=== PATIENT | female | born 1945 | race Caucasian/White ===

== ENCOUNTER 2025-01-17 05:48 | Emergency (ER) | payer MEDICARE, MEDICAID, SELFPAY ==
[2025-01-17 05:50] VITALS: BP 198/90; PULSE 69; RESP 18; TEMP 36.6; O2SAT 97; O2SAT 98; BMI 28.7
--- NOTE | 2025-01-17 05:55 | CT_ITS ---
PROCEDURE: BRAIN/HEAD WITHOUT CONTRAST 01/17/2025 REASON FOR EXAM: FALL/INJURY TECHNIQUE: Head CT without intravenous contrast. Coronal and Sagittal reconstruction series were provided. One or more dose reduction techniques were used (e.g., Automated exposure control, adjustment of the mA and/or kV according to patient size, use of iterative reconstruction technique. RADIATION DOSE SUMMARY: CTDlvol: 45 mGy DLP: 796 mGycm COMPARISON: None. FINDINGS: The ventricles and sulci are prominent due to atrophy. There is asymmetric volume loss within the left frontoparietal region, may be due to prior insult. Extensive periventricular white matter changes are present consistent with chronic microvascular ischemic disease. Age-indeterminate infarcts seen near the left external capsule (image 23/43). Age indeterminate infarcts along the right lateral convexity (image 27/43). There is no definitive intracranial hemorrhage, mass effect or midline shift. The calvarium is intact. The visualized paranasal sinuses are unremarkable. CT/Brain/Head without Contrast IMPRESSION: No acute intracranial hemorrhage, mass effect or midline shift. Age indeterminate cerebral infarcts. If there is concern for acute infarct, MR I may be obtained. Reading Location: [id number]
--- NOTE | 2025-01-17 05:55 | ED.VIS.FALL ---
HPI HPI - Fall History of Present Illness Chief Complaint: Fall Informant: patient and EMS Narrative Narrative: 79-year-old female sent from a retirement after a fall that occurred last night which was somewhere between 6 and 9 hours ago. She states she got up to walk with her walker, she was going around the foot of her bed and somehow she fell. There were no prodromal symptoms, she states her head landed in a basket of laundry. She does not have a headache but states her head feels a little foggy and funny. She denies any other pain or injury. Although it is not on record here, the medication list that accompanies her from the retirement states she takes warfarin. She denies any recent illness. She has a chronically indwelling Grider catheter, she has had no hematuria, she has a history of a stroke with weakness on the right side, and a chronic right shoulder pain that is no different than usual right now. She has no sensitivity to light, blurry vision, neck pain, or dizziness. [facility] Medical History Hemiplegia affecting right dominant side Major depressive disorder Restless leg syndrome Neuromuscular dysfunction of bladder Retention of urine Constipated Insomnia Generalized anxiety disorder HTN (hypertension) Hyperlipemia UTI (urinary tract infection) GERD (gastroesophageal reflux disease) Anemia, unspecified Congestive heart failure Chronic kidney disease, stage 3 unspecified Hypomagnesemia Antiphospholipid syndrome Type 2 diabetes mellitus Home Medications ?Medication ?Instructions ?Recorded ?Last Taken ?Type albuterol sulfate 90 mcg/actuation 2 puff inhalation Q4H PRN PRN Sob 10/19/16 Unknown History aerosol inhaler (Ventolin HFA) &/Or Wheezing biotin 300 mcg tablet 300 mcg PO DAILY 10/19/16 Unknown History bupropion HCl 150 mg tablet,12 hr 150 mg PO BID 10/19/16 Unknown History sustained-release cholecalciferol (vitamin D3) 25 2,000 unit PO BID 10/19/16 Unknown History mcg (1,000 unit) tablet (Vitamin D3) diclofenac sodium 75 mg 75 mg PO BID 10/19/16 Unknown History tablet,delayed release estradiol 0.5 mg tablet (Estrace) 0.5 - 1 mg PO DAILY 10/19/16 Unknown History ferrous gluconate 240 mg (27 mg 240 mg PO DAILY 10/19/16 Unknown History iron) tablet glipizide 5 mg tablet, extended 5 mg PO 10/19/16 Unknown History release 24 hr (Glucotrol XL) levothyroxine 175 mcg tablet 175 mcg PO DAILY 10/19/16 Unknown History losartan 50 mg tablet (Cozaar) 50 mg PO 10/19/16 Unknown History magnesium 250 mg tablet 250 mg PO BID 10/19/16 Unknown History metformin 850 mg tablet 850 mg PO BIDCM 10/19/16 Unknown History multivitamin (Multiple Vitamins 1 ea PO DAILY 10/19/16 Unknown History tablet) omega 3-nji-qdr-fish oil 500 mg 1 ea PO DAILY 10/19/16 Unknown History (200mg-300mg)-1,000 mg capsule omeprazole 10 mg capsule,delayed 10 mg PO DAILY 10/19/16 Unknown History release pravastatin 20 mg tablet 20 mg PO QHS 10/19/16 Unknown History alogliptin 12.5 mg tablet 12.5 mg PO DAILY 01/17/25 Unknown History amoxicillin 500 mg tablet 500 mg PO TID 01/17/25 Unknown History aspirin 81 mg chewable tablet 1 tab PO DAILY 01/17/25 Unknown History atorvastatin 40 mg tablet 40 mg PO DAILY 01/17/25 Unknown History bisacodyl 10 mg rectal suppository 10 mg [place] DAILY PRN constipation 01/17/25 Unknown History (Dulcolax (bisacodyl)) buspirone 10 mg tablet 10 mg PO TID 01/17/25 Unknown History glipizide 10 mg tablet, extended 10 mg PO BID 01/17/25 Unknown History release 24 hr levothyroxine 137 mcg tablet 137 mcg PO DAILY 01/17/25 Unknown History losartan 100 mg tablet 100 mg PO DAILY 01/17/25 Unknown History meclizine 25 mg chewable tablet 25 mg PO DAILY PRN dizziness 01/17/25 Unknown History (Antivert) metformin 1,000 mg tablet 1,000 mg PO BID 01/17/25 Unknown History metoprolol succinate 50 mg 50 mg PO DAILY 01/17/25 Unknown History tablet,extended release 24 hr mirtazapine 7.5 mg tablet 7.5 mg PO QHS 01/17/25 Unknown History nitrofurantoin macrocrystal 100 mg PO 01/17/25 Unknown History capsule nitrofurantoin 1 cap PO BID 01/17/25 Unknown History monohydrate/macrocrystals 100 mg capsule pantoprazole 40 mg tablet,delayed 40 mg PO DAILY 01/17/25 Unknown History release penicillin V potassium 250 mg 250 mg PO 4X/DAY 01/17/25 Unknown History tablet ropinirole 0.5 mg tablet 0.5 mg PO BID 01/17/25 Unknown History sertraline 50 mg tablet 50 mg PO DAILY 01/17/25 Unknown History sitagliptin phosphate 50 mg tablet 50 mg PO DAILY 01/17/25 Unknown History (Sepuvia) tizanidine 2 mg tablet 3 mg PO .QID 01/17/25 Unknown History tizanidine 4 mg tablet 4 mg PO QHS 01/17/25 Unknown History tramadol 50 mg tablet 50 mg PO Q6H PRN PRN pain 01/17/25 Unknown History warfarin 3 mg tablet 3 mg PO DAILY 01/17/25 Unknown History warfarin 4 mg tablet PO 01/17/25 Unknown History warfarin 5 mg tablet 5 mg PO DAILY 01/17/25 Unknown History Allergy/AdvReac Type Severity Reaction Status Date / Time canagliflozin (From Invokana) Allergy Mild PT UNSURE Verified 01/17/25 05:50 OF REACTION ranitidine (From Zantac) Allergy Mild PT UNSURE Verified 01/17/25 05:50 OF REACTION spironolactone Allergy Unknown Verified 01/17/25 05:50 duloxetine (From Cymbalta) AdvReac Unknown Verified 01/17/25 05:50 lisinopril AdvReac Other Verified 01/17/25 05:50 Family History no significant family his ROS ROS ED Constitutional Constitutional ED: Denies chills or fever(s) Eyes Eyes: Denies change in vision or diplopia ENT ENT ED: Denies rhinorrhea or sore throat Cardiovascular Cardiovascular: Denies chest pain or palpitations Respiratory/Chest Respiratory/Chest: Denies cough or dyspnea Gastrointestinal Gastrointestinal: Denies abdominal pain, diarrhea, nausea or vomiting Genitourinary Genitourinary ED: Denies dysuria or hematuria Musculoskeletal Musculoskeletal: Denies back pain or neck pain Integumentary Denies abscess or rash Neurologic Neurologic: Reports paresthesias LUE and LLE and weakness; Denies headache(s) Psychiatric Psychiatric: Denies anxiety or suicidal thoughts Hematologic/Lymphatic Hematologic/Lymphatic: Reports easy bleeding and easy bruising EXAM Physical Exam Const Vital Signs: 01/17/25 05:50 01/17/25 05:50 01/17/25 06:27 Temperature 97.9 F Temperature Source Oral Pulse Rate 69 63 Respiratory Rate 18 16 Respiratory Effort Normal Respiratory Depth Normal Respiratory Pattern Normal Blood Pressure 198/90 H 177/75 H Blood Pressure Mean 126 109 Pulse Ox 97 98 98 Oxygen Delivery Method Room Air Room Air Room Air Positive well nourished and well developed General Appearance ED: well developed and NAD HEENT Reports moist mucous membranes HEENT Narrative: No Pérez sign, no raccoon eyes, no CSF otorhinorrhea, no hemotympanum. normocephalic and atraumatic Eyes PERRL and EOMs intact bilaterally Neck full ROM and supple Resp normal respiratory effort and clear to auscultation bilaterally Cardio regular rate and regular rhythm GI non-tender and non-distended Auscultation: normoactive bowel sounds Palpation: soft Back/Spine no CVA tenderness General Back: other FROM Cervical Spine: Negative for cervical spine tenderness Thoracic Spine / Upper Back: Negative for thoracic spinal tenderness Lumbar Spine / Lower Back: Negative for lumbar spinal tenderness Extremity normal to inspection Extremity Narrative: Able to range all joints without difficulty or pain except for the right shoulder which she states is chronically limited. With resting her right upper extremity at her side, there is no tenderness in the proximal humerus, clavicle, or the acromioclavicular joint. General Extremety ED: Negative for edema, pulses abnormal or tenderness General Extremity: Negative for edema or pulses abnormal Neuro oriented x3, CN's II-XII intact bilaterally and no sensory deficits noted Neuro Narrative: Weakness right arm and leg, baseline per patient. Sensorium / Orientation: awake and alert Psych mental status grossly normal and thought process normal Skin no rashes or lesions noted and no wounds MDM MDM MDM Narrative Medical decision making narrative: CT of the head was obtained in order to rule out intracranial injury, I reviewed the images and report which I agree with, negative for anything acute. We checked her INR since she is on warfarin, it is 1.2. Repeat blood pressure 177/76. I do not think this needs to be treated emergently. She is having no symptoms of an illness and had no prodromal symptoms and her vital signs are otherwise unremarkable. Therefore I do not think she needs other testing today emergently. Stable for discharge back to long-term. Radiography Diagnostic Testing: Clinical Impression(s) from Imaging Studies Brain CT 01/17/25 05:55 IMPRESSION: No acute intracranial hemorrhage, mass effect or midline shift. Age indeterminate cerebral infarcts. If there is concern for acute infarct, MRI may be obtained. Reading Location: [id number] Discharge Plan Triage Chief Complaint: Fall ED Provider: Jas Kelley Dx/Rx/DC Orders Clinical Impression: Closed head injury without concussion, Accelerated hypertension, Accidental fall, Subtherapeutic international normalized ratio (INR) Instructions: ED Head Injury (Adult) Prescriptions: No Action multivitamin [Multiple Vitamins] 1 EACH tablet 1 ea PO DAILY losartan [Cozaar] 50 MG tablet 50 mg PO levothyroxine 175 MCG tablet 175 mcg PO DAILY bupropion HCl 150 MG tablet sustained-release 12 hr 150 mg PO BID glipizide [Glucotrol XL] 5 MG tablet extended release 24hr 5 mg PO metformin 850 MG tablet 850 mg PO BIDCM biotin 300 MCG tablet 300 mcg PO DAILY omeprazole 10 MG capsule 10 mg PO DAILY ferrous gluconate 240 MG tablet 325 mg PO DAILY diclofenac sodium 75 MG tablet 75 mg PO BID magnesium 250 MG tablet 250 mg PO BID pravastatin 20 MG tablet 20 mg PO QHS estradiol [Estrace] 0.5 MG tablet 0.5 - 1 mg PO DAILY albuterol sulfate [Ventolin HFA] 1 INHALER inhaler 2 puff inhalation Q4H PRN PRN (Reason: Sob &/Or Wheezing) cholecalciferol (vitamin D3) [Vitamin D3] 1,000 UNIT tablet 2,000 unit PO BID omega 8-uaf-pga-fish oil 1 EACH capsule 1 ea PO DAILY penicillin V potassium 250 mg tablet 250 mg PO 4X/DAY atorvastatin 40 mg tablet 40 mg PO DAILY levothyroxine 137 mcg tablet 137 mcg PO DAILY tizanidine 2 mg tablet 3 mg PO .QID tizanidine 4 mg tablet 4 mg PO QHS metoprolol succinate 50 mg tablet extended release 24 hr 50 mg PO DAILY glipizide 10 mg tablet extended release 24hr 10 mg PO BID tramadol 50 mg tablet 50 mg PO Q6H PRN PRN (Reason: pain) amoxicillin 500 mg tablet 500 mg PO TID warfarin 4 mg tablet PO warfarin 3 mg tablet 3 mg PO DAILY pantoprazole 40 mg tablet,delayed release (DR/EC) 40 mg PO DAILY metformin 1,000 mg tablet 1,000 mg PO BID nitrofurantoin macrocrystal 100 mg capsule PO ropinirole 0.5 mg tablet 0.5 mg PO BID buspirone 10 mg tablet 10 mg PO TID warfarin 5 mg tablet 5 mg PO DAILY aspirin 81 mg tablet,chewable 1 tab PO DAILY losartan 100 mg tablet 100 mg PO DAILY sertraline 50 mg tablet 50 mg PO DAILY mirtazapine 7.5 mg tablet 7.5 mg PO QHS nitrofurantoin monohyd/m-cryst 100 mg capsule 1 cap PO BID Januvia 50 mg tablet 50 mg PO DAILY alogliptin 12.5 mg tablet 12.5 mg PO DAILY bisacodyl [Dulcolax (bisacodyl)] 10 mg suppository 10 mg [place] DAILY PRN (Reason: constipation) meclizine [Antivert] 25 mg tablet,chewable 25 mg PO DAILY PRN (Reason: dizziness) Primary Care Provider: Princess Mariano Referrals: Princess Mariano MD [Primary Care Provider] - 2 Days (Have blood pressure rechecked) Activity Restrictions/Additional Instructions: INR this morning 1.[address] normal/negative. Currently no symptoms of concussion. Print Language: Indonesian Disposition Disposition: Home, Self Care
[2025-01-17 06:27] VITALS: BP 177/75; PULSE 63; RESP 16; O2SAT 98
[2025-01-17 06:31] LABS: International Normalized Ratio 1.2; Prothrombin Time (Protime)PT. 15.1 SECONDS (11.7-14.9)
[2025-01-17 07:03] VITALS: BP 178/76; PULSE 63; RESP 16; TEMP 36.6; O2SAT 100
--- NOTE | 2025-01-17 07:05 | ED.RN ---
[facility] called and was updated on plan of care for patient, no further questions at this time.
== END 2025-01-17 07:19 | disposition home or self-care (01) ==
PROVIDERS: Emergency Provider Emergency Medicine; PCP Internal Medicine; Visit Provider Emergency Medicine
DX: S09.90XA Unspecified injury of head, initial encounter (principal); I69.351 Hemiplegia and hemiparesis following cerebral infarction affecting right dominant side; I50.9 Heart failure, unspecified; I13.0 Hypertensive heart and chronic kidney disease with heart failure and stage 1 through stage 4 chronic kidney disease, or unspecified chronic kidney disease; E11.22 Type 2 diabetes mellitus with diabetic chronic kidney disease; N18.30 Chronic kidney disease, stage 3 unspecified; W19.XXXA Unspecified fall, initial encounter; Y92.129 Unspecified place in nursing home as the place of occurrence of the external cause; F32.9 Major depressive disorder, single episode, unspecified; F41.1 Generalized anxiety disorder; E78.5 Hyperlipidemia, unspecified; E83.42 Hypomagnesemia; N31.9 Neuromuscular dysfunction of bladder, unspecified; K21.9 Gastro-esophageal reflux disease without esophagitis; K59.00 Constipation, unspecified; D68.61 Antiphospholipid syndrome; D64.9 Anemia, unspecified; M25.511 Pain in right shoulder; G89.29 Other chronic pain; G25.81 Restless legs syndrome; Z96.0 Presence of urogenital implants; Z79.01 Long term (current) use of anticoagulants; Z79.84 Long term (current) use of oral hypoglycemic drugs; Z79.82 Long term (current) use of aspirin; Z79.899 Other long term (current) drug therapy
CPT/HCPCS: 70450; 85610; 99285; A4216